=== PATIENT | male | born 1965 | race Caucasian/White ===

== ENCOUNTER 2020-11-20 17:26 | Emergency (ER) | payer MEDICAID ==
--- NOTE | 2020-11-20 18:16 | EDM.PDOC ---
ED HPI GENERAL MEDICAL PROBLEM - General Chief Complaint: Abdominal Pain Stated Complaint: STOMACH PAIN Time Seen by Provider: 11/20/20 18:00 Source of Information: Reports: Patient History Limitations: Reports: No Limitations - History of Present Illness INITIAL COMMENTS - FREE TEXT/NARRATIVE: Pablo is a 54 year old who was sent over from clinic with concerns of an ileus. States has noted increasing abdominal pain this afternoon and "is bloated and cramping". Has been belching. No nausea or vomiting. Did have a BM this am at 1000 which was normal, no blood. He denies urinary complaints. Not passing any flatus. Last ate toast at 1200 and admits made the pain worse. No fevers. Recently started on insulin on October 20. States blood sugar at that time was in the 900s. Currently taking 30 units in the am of Lantus, 25 units at night and sugars have been running between 90-130. Did have xray at clinic today, was told he needed to be seen in the ER as would need IV fluids, possible admission for an ileus. Does have a known abdominal hernia. Onset: Today, Gradual Duration: Constant, Getting Worse Location: Reports: Abdomen Quality: Reports: Sharp Severity: Severe Associated Symptoms: Denies: Confusion, Chest Pain, Cough, Loss of Appetite, Nausea/Vomiting, Shortness of Breath Middle Abdominal Pain Score (Numeric/FACES): 7 - Related Data Allergies Allergy/AdvReac Type Severity Reaction Status Date / Time No Known Allergies Allergy Verified 11/20/20 19:51 Home Meds: Home Meds Enalapril/Hydrochlorothiazide [Enalapril-HCTZ 10-25 MG] 0.5 tab PO DAILY 11/20/20 [History] Insulin Glarg,Human.Rec.Analog [Lantus Solostar] 50 unit SQ DAILY 11/20/20 [History] Past Medical History Endocrine/Metabolic History: Reports: Diabetes, Type II Social & Family History - Tobacco Use Tobacco Use Status *Q: Unknown Ever Used Tobacco ED ROS GENERAL - Review of Systems Review Of Systems: See Below Constitutional: Reports: Decreased Appetite. Denies: Fever, Chills, Malaise, Weakness HEENT: Denies: Ear Pain, Sinus Problem, Throat Pain, Vertigo Respiratory: Denies: Shortness of Breath Cardiovascular: Denies: Chest Pain, Edema, Lightheadedness Endocrine: Denies: Fatigue GI/Abdominal: Reports: Distension. Denies: Abdominal Pain, Nausea, Vomiting : Denies: Dysuria, Frequency Musculoskeletal: Reports: No Symptoms Skin: Reports: No Symptoms Neurological: Reports: No Symptoms ED EXAM, GI/ABD - Physical Exam Exam: See Below Exam Limited By: No Limitations General Appearance: Alert, WD/WN, Mild Distress Ears: Normal External Exam, Normal TMs Nose: Normal Inspection, Normal Mucosa, No Blood Throat/Mouth: Normal Inspection, Normal Oropharynx Head: Normocephalic Neck: Normal Inspection, Supple, Non-Tender Respiratory/Chest: No Respiratory Distress, Lungs Clear, Normal Breath Sounds Cardiovascular: Regular Rate, Rhythm GI/Abdominal Exam: Distended, Tender, Abnormal Bowel Sounds Extremities: Normal Inspection, No Pedal Edema Neurological: Alert, Oriented Skin Exam: Warm, Dry Course - Vital Signs Last Recorded V/S: Last Vital Signs Temp 97.6 F 11/20/20 17:35 Pulse 101 H 11/20/20 17:35 Resp 16 11/20/20 17:35 BP 124/85 11/20/20 17:35 Pulse Ox 95 11/20/20 17:35 - Orders/Labs/Meds Orders: Active Orders 24 hr Category Date Time Status CULTURE URINE [RM] Stat Lab 11/20/20 18:38 Received Labs: Laboratory Tests 11/20/20 11/20/20 11/20/20 Range/Units 18:18 18:18 18:38 WBC 13.7 H (4.0-10.0) x10^3/uL RBC 6.04 H (4.5-6.0) x10^6/uL Hgb 17.8 (14.0-18.0) g/dL Hct 50.2 (40.0-52.0) % MCV 83.1 (78.0-93.0) fL MCH 29.5 (26.0-32.0) pg MCHC 35.5 (32.0-36.0) g/dL RDW Coeff of Wu 13.4 (10.0-15.0) % Plt Count 315 (130-400) x10^3/uL Add Manual Diff Yes Neutrophils % (Manual) 82 H (50-80) % Lymphocytes % (Manual) 15 L (25-50) % Monocytes % (Manual) 3 (2-11) % Platelet Estimate Adequate Sodium 138 (136-145) mmol/L Potassium 3.9 (3.5-5.1) mmol/L Chloride 102 (98-107) mmol/L Carbon Dioxide 23 (21-32) mmol/L Anion Gap 16.9 H (5-15) mmol/L BUN 15 (7-18) mg/dL Creatinine 1.0 (0.70-1.30) mg/dL Est Cr Clr Drug Dosing TNP Estimated GFR (MDRD) > 60 Glucose 137 H (74-106) mg/dL Calcium 9.4 (8.5-10.1) mg/dL Corrected Calcium 9.64 (8.5-10.1) mg/dL Total Bilirubin 1.0 (0.2-1.0) mg/dL AST 27 (15-37) U/L ALT 74 H (16-63) U/L Alkaline Phosphatase 71 (46-116) U/L C-Reactive Protein 4.1 H (<=0.9) mg/dL Total Protein 7.7 (6.4-8.2) g/dL Albumin 3.7 (3.4-5.0) g/dL Globulin 4.0 Albumin/Globulin Ratio 0.93 Urine Color Vilma H (YELLOW) Urine Appearance Slightly cloudy H (CLEAR) Urine pH 5.5 (5.0-8.0) Ur Specific Electra >=1.030 Urine Protein 30 H (NEGATIVE) mg/dL Urine Glucose (UA) Negative (NEGATIVE) mg/dL Urine Ketones 15 H (NEGATIVE) mg/dL Urine Occult Blood Negative (NEGATIVE) Urine Nitrite Positive H (NEGATIVE) Urine Bilirubin Moderate H (NEGATIVE) Urine Urobilinogen 1.0 (0.2) EU/dL Ur Leukocyte Esterase Negative (NEGATIVE) U Hyaline Cast (Auto) Few Urine RBC 0-5 (NOT SEEN) /HPF Urine WBC 0-5 (NOT SEEN) /HPF Ur Transition Epith Cell Not seen (NEGATIVE) /HPF Amorphous Sediment Moderate Urine Bacteria Few H (NEGATIVE) /HPF Granular Casts (Auto) Few Urine Mucus Many H (NEGATIVE) /LPF Meds: Medications Discontinued Medications Generic Name Dose Route Start Last Admin Trade Name Freq PRN Reason Stop Dose Admin Fentanyl 25 mcg 11/20/20 18:39 11/20/20 18:52 Fentanyl IVPUSH 11/20/20 18:40 25 mcg ONETIME ONE Administration Iopamidol 100 ml 11/20/20 19:24 11/20/20 19:24 Isovue-300 (61%) IVPUSH 11/20/20 19:25 100 ml ONETIME ONE Administration - Re-Assessments/Exams Free Text/Narrative Re-Assessment/Exam: 11/20/202044-Labs show possible UTI. WBC 13.7. Creatinine is stable. CT scan shows small bowel obstruction as well as abdominal wall hernia. Contacted Dr. Hays, suggested we have surgeon review. Patient has gotten relief of severe discomfort. Resting comfortably. Will have radiology push films to [place]. 2129- Discussed with DR. Jules. Difficult to note by CT if obstruction caused by hernia. Dr. Jules recommends surgical evaluation. Will transfer to [facility]. Patient and informed. Will keep NPO. Departure - Departure Time of Disposition: 21:31 Disposition: DC/Tfer to Acute Hospital 02 Condition: Undetermined Clinical Impression: Small bowel obstruction, Abdominal wall hernia - Discharge Information *PRESCRIPTION DRUG MONITORING PROGRAM REVIEWED*: No *COPY OF PRESCRIPTION DRUG MONITORING REPORT IN PATIENT JHONATAN: No Referrals: Savi Zarate MD [Primary Care Provider] - Forms: ED Department Discharge Additional Instructions: Transfer per ambulance to [facility] to Dr. Jules Sepsis Event Note (ED) - Focused Exam Vital Signs: Vital Signs Temp Pulse Resp BP Pulse Ox 11/20/20 17:35 97.6 F 101 H 16 124/85 95 - My Orders Last 24 Hours: My Active Orders 11/20/20 18:38 CULTURE URINE [RM] Stat - Assessment/Plan Last 24 Hours: My Active Orders 11/20/20 18:38 CULTURE URINE [RM] Stat
[2020-11-20] MEDS ORDERED: fentaNYL 50 MCG/ML SDV IVPUSH ONE (18:39)
[2020-11-20 18:58] LABS: ANION GAP 16.9 mmol/L (5-15); CHLORIDE,CL 102 mmol/L (98-107); SODIUM,NA 138 mmol/L (136-145)
[2020-11-20] MEDS ORDERED: Iopamidol 612 MG/ML 100 ML Bottle IVPUSH ONE (19:24)
--- NOTE | 2020-11-20 20:05 | CT ---
[id number] CT/CT Abdomen Pelvis W IV EXAM: CT Abdomen Pelvis W IV CLINICAL DATA: ABDOMINAL PAIN COMPARISON: NO PREVIOUS SIMILAR EXAM IS AVAILABLE. FINDINGS: There is a small bowel obstruction There is an anterior abdominal wall hernia Question raised if this is reducible There is free fluid in the pelvis There is no free air There is no pneumatosis intestinalis or portal venous air The liver and spleen are unremarkable There is a small hiatal hernia The adrenals, aorta, pelvis, and gallbladder are unremarkable The appendix appears normal IMPRESSION: SMALL BOWEL OBSTRUCTION FREE FLUID ANTERIOR ABDOMINAL HERNIA Santi Gallo MD 11/20/202003 Thank you for allowing us to participate in the care of your patient.
== END 2020-11-20 22:05 | disposition short-term general hospital (02) ==
LOC: VM.ED 17:26
DX: K56.609 Unspecified intestinal obstruction, unspecified as to partial versus complete obstruction (principal); K46.0 Unspecified abdominal hernia with obstruction, without gangrene; E11.9 Type 2 diabetes mellitus without complications; Z79.4 Long term (current) use of insulin; Z79.899 Other long term (current) drug therapy
CPT/HCPCS: 36415; 74177; 80053; 81001; 85025; 86140; 87086; 96374; 99284; 99285-25; J3010; Q9967

== ENCOUNTER 2021-07-08 06:45 | Day surgery (SDC) | payer MEDICAID ==
[2021-07-08] MEDS ORDERED: Lactated Ringers 1,000 ML IV SCH (07:00)
[2021-07-08] MEDS ORDERED: Propofol 200 MG/20 ML SDV ONE ×2 (08:04→08:18)
[2021-07-08] MEDS ORDERED: fentaNYL 100 MCG/2 ML SDV ONE (08:04)
--- NOTE | 2021-07-08 13:17 | OR ---
DATE OF SURGERY: 07/08/2021. REFERRING PROVIDER: Savi Zarate MD PRE-OPERATIVE DIAGNOSES: Screening colonoscopy. This is the patient's first colonoscopy. He denies any known family history of colon cancer. POST-OPERATIVE DIAGNOSES: 1. Three total polyps removed today. a. 1 mm cecal polyp, removed using cold forceps. b. 8 mm polyp at 40 cm, removed using hot snare. c. 3 mm polyp at 30 cm, removed using cold forceps. 2. Minimal left-sided diverticulosis. 3. Normal-appearing distal ileum. PROCEDURE: Colonoscopy with polypectomy x3 (two using cold forceps and one using hot snare). SURGEON: Antoine Preciado M.D. ANESTHESIA: Monitored anesthesia care. BOWEL PREP: Good. Pablo is a 55-year-old male who was brought to the endoscopy suite after discussing risks and benefits of the procedure. Informed consent was obtained for conscious sedation and colonoscopy with or without biopsy and/or polypectomy. We also discussed possibility of missed lesions. Pre-procedure exam was unremarkable. IV, oxygen, and monitors were placed. The patient was placed in the left lateral decubitus position. Sedation was administered and a digital rectal exam was performed and unremarkable. Colonoscope was passed into the rectum and slowly advanced all the way to the cecum. Cecum was viewed and photographed. Within the cecum, there was a 1 mm polyp noted, removed using single bite of cold forceps. Ileocecal valve was intubated and distal ileum was normal in appearance. The colonoscope was slowly withdrawn and the mucosa was closed observed in a direct circumferential manner. The ascending colon was unremarkable. The transverse colon was unremarkable. The descending colon revealed 8 mm polyp at 40 cm, removed using hot snare. Within the left side of the colon, there was some minimal diverticulosis noted. Within the sigmoid colon, there was 3 mm polyp at 30 cm, removed using cold forceps. Retroflexion was performed and rectal mucosa was unremarkable. Scope was removed. The patient tolerated the procedure well. The patient was monitored until that baseline status. Discharge instructions were reviewed and the patient was discharged in good condition. COMPLICATIONS: None. TOTAL TIME: 30 minutes. ESTIMATED BLOOD LOSS: About 1 mL. RECOMMENDATIONS/FOLLOW-UP: We will await results of path report to determine ideal followup interval. I will have the patient hold his aspirin for 3 days to limit any chance of bleeding from the polypectomy sites. I would like to kindly thank Savi Zarate for this referral. DMB: 07/08/2021 10:45:06 MODL: 07/08/2021 11:09:32 /[id number]
== END 2021-07-08 10:00 | disposition home or self-care (01) ==
LOC: VM.SDS 06:45
PROVIDERS: ATTEND Family Medicine
DX: Z12.11 Encounter for screening for malignant neoplasm of colon (principal); K57.30 Diverticulosis of large intestine without perforation or abscess without bleeding; D12.2 Benign neoplasm of ascending colon; D12.4 Benign neoplasm of descending colon; I10 Essential (primary) hypertension; E11.9 Type 2 diabetes mellitus without complications; M10.9 Gout, unspecified; F17.220 Nicotine dependence, chewing tobacco, uncomplicated; E66.01 Morbid (severe) obesity due to excess calories; Z98.890 Other specified postprocedural states; Z79.84 Long term (current) use of oral hypoglycemic drugs; Z79.899 Other long term (current) drug therapy; Z79.82 Long term (current) use of aspirin; Z68.37 Body mass index [BMI] 37.0-37.9, adult
CPT/HCPCS: 00812; 45380; 45385; 82947; J2704; J3010; J7120

== ENCOUNTER 2021-11-28 10:03 | Emergency (ER) | payer BC, MEDICAID ==
[2021-11-28] MEDS ORDERED: Sodium Chloride 0.9% 10 ML Syringe FLUSH PRN (10:54)
[2021-11-28] MEDS ORDERED: Ketorolac 30 MG/ML SDV IVPUSH ONE (11:02)
[2021-11-28 11:24] LABS: CHLORIDE,CL 98 mmol/L (98-107); SODIUM,NA 135 mmol/L (136-145)
[2021-11-28 11:25] LABS: ANION GAP 13.8 mmol/L (5-15)
[2021-11-28] MEDS ORDERED: Lidocaine 1% 5 ML VIAL INJECT ONE (12:06)
[2021-11-28] MEDS ORDERED: Take Home: Amoxicillin/Clavulanate K 875-125 MG Tab, 2 Tab Pack PO ONE (12:07)
[2021-11-28] MEDS ORDERED: Take Home: Acetaminophen/oxyCODONE 325-5 MG, 5 Tab Pack PO ONE (12:22)
[2021-11-28] MEDS ORDERED: Morphine 4 MG/ML Syringe IVPUSH ONE (12:28)
[2021-11-28] MEDS ORDERED: cefTRIAXone 1 GM Vial IVPUSH ONE (12:29)
== END 2021-11-28 12:45 | disposition home or self-care (01) ==
LOC: VM.ED 10:03
DX: M25.722 Osteophyte, left elbow (principal); I10 Essential (primary) hypertension; M10.9 Gout, unspecified; E11.9 Type 2 diabetes mellitus without complications; E66.9 Obesity, unspecified; Z79.82 Long term (current) use of aspirin; Z79.899 Other long term (current) drug therapy; Z68.37 Body mass index [BMI] 37.0-37.9, adult
CPT/HCPCS: 36415; 73070-LT; 80048; 84550; 85025; 86140; 96374; 96375; 99283; 99283-25; A9270-GY; J0696; J1885; J2270

== ENCOUNTER 2024-11-07 07:03 | Day surgery (SDC) | payer BC, MEDICAID ==
[~2024-11-07 07:03] MED LIST: Lactated Ringers 1,000 ML IV SCH
[2024-11-07] MEDS: Lactated Ringers 1,000 ML IV SCH (07:15)
[2024-11-07] MEDS ORDERED: fentaNYL 100 MCG/2 ML SDV ONE (08:10)
[2024-11-07] MEDS ORDERED: Propofol 200 MG/20 ML SDV ONE ×2 (08:10→08:47)
[2024-11-07] MEDS ORDERED: Sodium Chloride 0.9% 10 ML Syringe FLUSH PRN (08:23)
== END 2024-11-07 11:12 | disposition home or self-care (01) ==
LOC: VM.SDS 07:03
PROVIDERS: ATTEND Family Medicine
DX: Z12.11 Encounter for screening for malignant neoplasm of colon (principal); D12.0 Benign neoplasm of cecum; D12.6 Benign neoplasm of colon, unspecified; K57.30 Diverticulosis of large intestine without perforation or abscess without bleeding; Z86.0100 Personal history of colon polyps, unspecified; I10 Essential (primary) hypertension; E11.9 Type 2 diabetes mellitus without complications; E66.9 Obesity, unspecified; Z68.38 Body mass index [BMI] 38.0-38.9, adult; Z79.84 Long term (current) use of oral hypoglycemic drugs; Z79.899 Other long term (current) drug therapy
CPT/HCPCS: 00811; 45380; 45385; 82947; J2704; J3010; J7120